=== PATIENT | female | born 1955 | race Caucasian/White ===

== ENCOUNTER → 2016-10-07 16:55 | Outpatient (CLI) | payer OTHER ==
[2015-07-07 06:17] VITALS: BMI 36.5
[~2016-10-07 16:55] MED LIST: ASPIRIN EC81 M1 PO; BIOTIN5 MG PO; BYSTOLIC5 MG PO; IBUPROFEN800 MG PO; MAGNESIUM OXID250 MG PO; MULTIPLE VITAMI1 TA1 PO; PRILOSEC20 MG PO; SOMA350 MG PO
== END | disposition home or self-care (01) ==
LOC: D.MAMMO 15:00
DX: Z85.3 Personal history of malignant neoplasm of breast (principal)

== ENCOUNTER → 2017-11-12 16:46 | Outpatient (CLI) | payer OTHER ==
[2015-07-07 06:17] VITALS: BMI 36.5
== END | disposition home or self-care (01) ==
LOC: D.MAMMO 15:00
DX: C50.919 Malignant neoplasm of unspecified site of unspecified female breast (principal)

== ENCOUNTER → 2018-06-01 10:45 | Outpatient (CLI) | payer OTHER ==
[2015-07-07 06:17] VITALS: BMI 36.5
== END | disposition home or self-care (01) ==
LOC: D.RAD 10:45
DX: S43.431A Superior glenoid labrum lesion of right shoulder, initial encounter (principal); X58.XXXA Exposure to other specified factors, initial encounter

== ENCOUNTER → 2018-10-30 16:47 | Outpatient (CLI) | payer OTHER ==
[2015-07-07 06:17] VITALS: BMI 36.5
== END | disposition home or self-care (01) ==
LOC: D.MAMMO 10-27 10:30 → D.US 10-27 11:00 → D.MAMMO 10:30
DX: C50.919 Malignant neoplasm of unspecified site of unspecified female breast (principal)

== ENCOUNTER 2019-11-24 09:00 | Outpatient (CLI) | payer MEDICARE, OTHER ==
[2015-07-07 06:17] VITALS: BMI 36.5
== END 2019-11-24 11:00 | disposition home or self-care (01) ==
LOC: D.MAMMO 09:00
PROVIDERS: ATTEND Family Medicine
DX: C50.911 Malignant neoplasm of unspecified site of right female breast (principal); R92.8 Other abnormal and inconclusive findings on diagnostic imaging of breast

== ENCOUNTER → 2020-11-20 12:54 | Outpatient (CLI) | payer MEDICARE, OTHER ==
[2015-07-07 06:17] VITALS: BMI 36.5
== END | disposition home or self-care (01) ==
LOC: D.MRI 12:54
PROVIDERS: ATTEND Orthopaedic Surgery
DX: R22.9 Localized swelling, mass and lump, unspecified (principal)

== ENCOUNTER → 2020-11-29 14:30 | Outpatient (CLI) | payer MEDICARE, OTHER ==
[2015-07-07 06:17] VITALS: BMI 36.5
== END | disposition home or self-care (01) ==
LOC: D.MAMMO 14:30
PROVIDERS: ATTEND Family Medicine
DX: Z85.3 Personal history of malignant neoplasm of breast (principal)

== ENCOUNTER → 2020-12-15 05:00 | Day surgery (SDC) | payer MEDICARE, OTHER ==
[2020-12-12 10:35] LABS: CALC OSMOLALITY 280 mosm/kg (275-300); CALCIUM 9.8 mg/dL (8.5-10.1); CARBON DIOXIDE 28.5 mmol/L (21.0-32.0); CHLORIDE - SERUM 103 mmol/L (98-107); CREATININE - SERUM 0.8 mg/dL (0.6-1.3); SODIUM 137 mmol/L (136-145); UREA NITROGEN 30 mg/dL (7-18); eGFR NON AFRICAN AMERICAN 76 mL/min (90-120)
[2020-12-12 10:36] LABS: GLUCOSE 115 mg/dL (74-106)
[2020-12-12 10:38] LABS: APTT 27.1 SECONDS (22.8-39.4); INR 1.09 (0.85-1.17)
[2020-12-12 10:40] LABS: BASOPHILS 0.6 % (0-2); HEMATOCRIT 42.8 % (36.0-48.0); HEMOGLOBIN 14.2 g/dL (12-16); IMMATURE GRANULOCYTES 0.3 % (0-5); LYMPHOCYTES 30.6 % (15-50); MCHC 33.2 g/dL (31.0-37.0); MCV 93.4 fL (80.0-100.0); MEAN PLATELET VOLUME 9.4 fL (7.4-10.4); NEUTROPHIL ABS# 4.58 10x3/uL (1.56-6.13); NEUTROPHILS 58.5 % (40-80); PLATELET COUNT 208 10x3/uL (130-400); RBC 4.58 10x6/uL (4.00-5.40); RDW 13.4 % (11.5-14.5); WBC 7.8 10x3/uL (4.8-10.8)
[~2020-12-15] VITALS: Ht 160 cm; Wt 90.3 kg
[~2020-12-15 05:00] MED LIST changes: +COLACE100 MG PO; +LIPITOR10 MG PO; +MICROZIDE PO; +OZEMPIC1 MG/0.75 SC; +TART CHERRY PO; +XARELTO20 MG PO
[2020-12-15 06:40] VITALS: BP 140/67; Ht 160 cm; Wt 90.3 kg
--- NOTE | 2020-12-15 09:47 | NUR ---
SCOPE PATCH BEHIND RT EAR ON ADMIT
--- NOTE | 2020-12-15 17:36 | OP ---
PATIENT NAME: TREVOR PISANO MEDICAL RECORD: [id number] :53 LOCATION:[facility] ADMISSION DATE: SURGEON: RICHI CHERRY DO DATE OF OPERATION: 12/15/2020 PROCEDURE PERFORMED: Right shoulder arthroscopy with rotator cuff repair, biceps tenodesis, subacromial decompression, distal clavicle excision, labral debridement. PREOPERATIVE DIAGNOSES: Right shoulder full thickness rotator cuff tear, superior labrum anterior and posterior tear, subacromial impingement and acromioclavicular joint arthritis. POSTOPERATIVE DIAGNOSES: Right shoulder full thickness rotator cuff tear, superior labrum anterior and posterior tear, subacromial impingement and acromioclavicular joint arthritis. INDICATIONS: Ms. Pisano is a 65-year-old female who has had right shoulder pain for years really. She had an MRI a few years ago, which showed the above findings. I got another one this last year, which showed the same, maybe worsening in the tear. She tried all manner of nonoperative treatment including injections and physical therapy. She was tired of dealing with the pain and wants something done surgically. I informed her of the risks of this including infection, bleeding, retear, damage to nerves and vessels in the area, arthrofibrosis of the shoulder, continued pain, need for further surgery, infection also and she signed a consent. SURGEON: Richi Cherry DO DESCRIPTION OF PROCEDURE: The patient was taken to the operative suite, laid in the left lateral decubitus position, sedated and LMA was placed. The right shoulder was then prepped and draped in sterile fashion. A timeout was performed, everyone was agreeance with the correct side, site, patient and procedure. She received 900 mg of clindamycin and had a block by anesthesia. I then inserted an 18-gauge spinal needle at the posterior portal and inflated the shoulder joint with 60 mL normal saline and then established portal with 11-blade scalpel, trocar entered into the joint. I then established an anterior port with 18-gauge spinal needle and 11-blade scalpel, brought a trocar in. The SLAP tear was quite severe, really type 2-3 SLAP tear. The subscapularis tendon was in good repair and there was a tear through the supraspinatus. The joint was in good shape as well as there was nothing in the inferior gutter. I brought a burner in, did a biceps tenotomy and labral debridement. I then went to the subacromial space, established lateral portal with 18-gauge spinal needle and 11-blade scalpel. I saw a full thickness tear there of the supraspinatus. I then brought in a shaver, did a subacromial decompression and distal clavicle excision through the anterior portal with acromioplasty through the lateral portal as well. I then removed the instruments and made an incision expanding the lateral portal with 15-blade scalpel, made careful dissection down with [place]'s, bluntly down to the rotator cuff tendon tear, cleared off the bursa, put a medial row anchor, bit through the tendon with 4 suture tapes and brought over to the lateral anchor making a nice repair. I then put a Regeneten implant on top of it and stapled it into place. I went to anterior humerus, made a small incision and dissected out carefully long head of the biceps tendon, whipstitched it, put unicortical 2.9 JuggerLoc anchor in and tied the whipstitch to the anchor loop as I put the tendon through the loop and cinched OPERATIVE REPORT [id number] TREVOR PISANO it down to the humerus, cut the looped suture and tied it back to the long head of the biceps tendon and then cut the excess tendon suture. I then irrigated and Genaro Javier, certified surgical secretary administrative assistant closed the open sites with 2-0 Vicryl in inverted interrupted fashion, 4-0 Monocryl ran on the skin, 4-0 Monocryl inverted interrupted fashion on the anterior and posterior portal sites and dressed everything with Dermabond glue, Telfa and Tegaderm. She was then awakened and taken to recovery in stable condition. BLOOD LOSS: Minimal. COMPLICATIONS: None. TRANSINT:[id number] Voice Confirmation ID: [id number] DOCUMENT ID: [id number] RICHI CHERRY DO at 1736 CC: [id number] DICTATION DATE: 12/15/20902 WAREHOUSE ADMINISTRATIVE ASSISTANT: 12/15/20 1649 [facility] [address] [place] [address]
== END | disposition home or self-care (01) ==
LOC: D.OPS 05:00
PROVIDERS: Anesthesiology; ATTEND Orthopaedic Surgery
DX: M75.101 Unspecified rotator cuff tear or rupture of right shoulder, not specified as traumatic (principal); T14.8XXA Other injury of unspecified body region, initial encounter; M19.011 Primary osteoarthritis, right shoulder; M25.811 Other specified joint disorders, right shoulder; X58.XXXA Exposure to other specified factors, initial encounter; R22.9 Localized swelling, mass and lump, unspecified